=== PATIENT | male | born 1940 | race Caucasian/White ===

== ENCOUNTER 2024-04-20 10:59 | Emergency (ER) | payer OTHER, SELFPAY ==
[2024-04-20 11:08] VITALS: BP 134/94
--- NOTE | 2024-04-20 11:14 | ED.GENMED ---
History of Present Illness
<Mable Baker PA-C - Last Filed: 04/21/24 11:20>
General
Chief Complaint: Swelling
Source: patient
Exam Limitations: none
Time Seen by Provider: 04/20/24 11:12
Nursing documentation reviewed up to this point in time: agreed with
History of Present Illness
History of Present Illness:
This is a 84 y/o male with a pmh of hypertension on lisinopril, previous tobacco use, presenting emergency department today with concerns of lip swelling and mild left-sided facial swelling. Patient reports that this started upon awakening this
morning. He thought could maybe be a dental issue and so he reported to his dentist this morning who performed an exam and imaging of his teeth and advised him to report to the emergency department. Patient denies facial pain, tongue swelling,
tooth pain, lip pain, rashes, dental pain, nausea, throat pain, dysphagia, vomiting, fevers, chills, chest pain, shortness of breath. Patient denies any food allergies, any environmental allergies. Patient states that he did go to dinner last night
but denies trying anything new.
Past History
<Mable Baker PA-C - Last Filed: 04/21/24 11:20>
Past History
ED Past Medical History: HTN
Social History
Tobacco: Non-smoker
Alcohol: None
Drug: None
Personal:
Living: with family
Employment: Retired
Family History
Family History: Other (reviewed and non-contributory)
Review of Systems
<KIMNAI Cervantes Last Filed: 04/21/24 11:20>
Review of Systems
All Other Systems: ROS reviewed and negative except as documented in HPI and ROS
Phy Exam
<KIMANI Cervantes Last Filed: 04/21/24 11:20>
Physical Exam
Physical Exam:
General: Patient is well appearing and in no acute distress; non-toxic
Skin: Warm and dry, no rashes or lesions
Head: Normocephalic, atraumatic
Eyes: Sclera non-icteric. EOMs intact. PERRLA.
Mouth: No intraoral lesions. Uvula midline. Dentition intact. No tenderness to palpation of the left lower molars. No tongue swelling. Tongue midline.
Cardiac: Regular rate and rhythm, no murmurs
Peripheral Vascular: No lower extremity swelling or edema.
Pulm: Normal respiratory effort, no wheezes, rales, or rhonchi
Neuro: CN II-XII intact, no focal neurologic deficits.
Psychiatric: Appropriate mood and affect.
Scores
<Mable Baker PA-C - Last Filed: 04/21/24 11:20>
Heart Failure Risk
Heart Failure Risk Score: Not Applicable
Course
<Mable Baker PA-C - Last Filed: 04/21/24 11:20>
Orders/Labs/Results
Orders:
Orders
04/20/24 11:44
Ondansetron Injectable [Zofran] 4 mg IV NOW STA
04/20/24 11:54
Diphenhydramine [Benadryl] 25 mg PO NOW STA
04/20/24 12:11
MethylPREDNISolone [Medrol] 16 mg PO NOW STA
Vital Signs
Initial and Last Documented VS:
Initial Vital Signs
Temp Pulse Resp BP Pulse Ox
97.4 F 69 20 134/94 97
04/20/24 11:08 04/20/24 11:08 04/20/24 11:08 04/20/24 11:08 04/20/24 11:08
Last Documented Vital Signs
Temp Pulse Resp BP Pulse Ox
97.4 F 62 18 124/89 99
04/20/24 11:08 04/20/24 12:29 04/20/24 12:29 04/20/24 12:29 04/20/24 12:29
<Dionisio Gibson DO - Last Filed: 04/20/24 12:04>
Orders/Labs/Results
Orders:
Orders
04/20/24 11:44
Ondansetron Injectable [Zofran] 4 mg IV NOW STA
04/20/24 11:54
Diphenhydramine [Benadryl] 25 mg PO NOW STA
04/20/24 12:11
MethylPREDNISolone [Medrol] 16 mg PO NOW STA
Vital Signs
Initial and Last Documented VS:
Initial Vital Signs
Temp Pulse Resp BP Pulse Ox
97.4 F 69 20 134/94 97
04/20/24 11:08 04/20/24 11:08 04/20/24 11:08 04/20/24 11:08 04/20/24 11:08
Last Documented Vital Signs
Temp Pulse Resp BP Pulse Ox
97.4 F 62 18 124/89 99
04/20/24 11:08 04/20/24 12:29 04/20/24 12:29 04/20/24 12:29 04/20/24 12:29
<Mable Baker PA-C - Last Filed: 04/21/24 11:20>
MDM/Problems Addressed
Differential Diagnosis Includes:
ddx include angioedema, contact dermatitis, anaphylaxis
MDM/Problems Addressed:
Lip swelling, lisinopril use:
This is a 84 y/o male with a pmh of hypertension on lisinopril, previous tobacco use, presenting emergency department today with concerns of lip swelling and mild left-sided facial swelling. Patient reports that this started upon awakening this
morning. Patient reported to the dentist prior to arrival to the emergency department. Patient had no worsening of his symptoms for many hours since they started. No worsening of his symptoms while here in the ER. No airway involvement, no tongue
involvement, no intraoral lesions. Patient given a dose of benadryl and steroid here in the emergency department. 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 Patient advised to
stop lisinopril immediately. Patient stable for discharge.
Chronic conditions affecting care:
HTN on lisinopri
<Mable Baker PA-C - Last Filed: 04/21/24 11:20>
*Pulse Oximetry
Patient hypoxic: no
*Critical Care Note
Total Time (30-74mins, 75-104mins- exclusive of procedures): Not Applicable
Data Reviewed
Review of Other/Old Records Reveals: Records and Discharge Summary (reviewed discharge summary from 09/17/22)
Source: patient and records
Prescriptions/Medications Considered But Not Given:
considered epinephrine injection however patient has no tongue involvement, no airway involvement, no stridor/hoarseness
<Mable Baker PA-C - Last Filed: 04/21/24 11:20>
Patient Management
Escalation/DeEscalation of care consider admission/obs:
Patient stable for discharge.
ED Attending Note
<Mable Baker PA-C - Last Filed: 04/21/24 11:20>
-
Portions of this chart may have been created with voice recognition software.� Occasional wrong word or��sound alike� substitutions may have occurred due to the inherent limitations of voice recognition software.
<Dionisio Gibson DO - Last Filed: 04/20/24 12:04>
ED Attending Note
Patient seen and examined by attending physician: Yes
I performed the substantive portion of visit, reviewed & personally made and approve the management plan that is documented in note by myself or CHRISTINA.: Yes
ED Attending Note:
Seen with PA agree with assessment and plan atraumatic left upper lip mild left facial swelling, no intraoral tenderness no tongue involvement no stridor patient was actually seen at the dentist, told that he had no intraoral infections, referred to
the ER, he is on an MARGARITO inhibitor, suspect this is the margarito inhibitor angioedema, will stop that medication should Benadryl and steroids monitor for any recurrence,
Discharge Plan
Departure
Patient Disposition: Home (Routine Discharge)
Date of Disposition: 04/20/24
Time of Disposition: 11:58
Patient with high blood pressure during this ER visit?: Yes
Condition: Good
Discharge Problem:
Angioedema
Instructions: Angioedema caused by MARGARITO inhibitor medicines, BLOOD PRESSURE
Prescriptions:
New
methylprednisolone [Medrol (Lanre)] 4 mg tablets,dose pack
See Rx Instructions .ROUTE .COMPLEX Qty: 21 0RF
Rx Instructions:
orally per package directions
No Action
atorvastatin 10 mg Tablet
10 mg PO DAILY
prednisolone acetate 1 % drops,suspension
1 drp RIGHT EYE .Q48H@HS
cinnamon bark [Cinnamon] 500 mg Capsule
2,000 mg PO DAILY
cholecalciferol (vitamin D3) 50 mcg (2,000 unit) Tablet
50 mcg PO DAILY
Osteo Bi-Flex Triple Strength 750 mg-644 mg- 30 mg-1 mg Tablet
1 tab PO DAILY
cefuroxime axetil 500 mg tablet
500 mg PO BID Qty: 10 0RF
doxycycline hyclate 100 mg tablet
100 mg PO BID Qty: 10 0RF
oseltamivir 75 mg Capsule
75 mg PO BID Qty: 3 0RF
lisinopril 20 mg tablet
20 mg PO DAILY Qty: 30 0RF
Referrals:
Clyde Modi I., DO [Family Provider] -
Activity Restrictions/Additional Instructions:
The swelling you have is called ANGIOEDEMA which is caused by the class of medications called MARGARITO inhibitors. You take a medication in this class called LISINOPRIL.
PLEASE STOP TAKING LISINOPRIL IMMEDIATELY.
Please return to the emergency department or call 911 immediately should you experience shortness of breath, chest pain, a recurrence of your symptoms, tongue swelling, hoarseness of voice, trouble breathing, or any other concerning signs or
symptoms.
Please call your family doctor for follow up and let them know you were seen in the emergency department for angioedema.
We have sent Medrol dose pack to your pharmacy. Please follow package instructions for dosing. Please start taking this tomorrow.
You can garbage pick up man Benadryl over the counter. You were given a dose of this in the emergency department. The next time you can take this is at 4 PM today. You can take one 25 mg Benadryl table every 4-6 hours as needed.
Interventions
Interventions:
*Risk Screen - Suicide Last Done: 04/20/24 11:08
*General Assessment Last Done: 04/20/24 11:08
*Neglect/Abuse Screening Last Done: 04/20/24 11:08
ED- Fall Risk Assessment Last Done: 04/20/24 12:31
*ED COVID-19 Vaccine History Last Done: 04/20/24 12:31
*Nursing Disposition Last Done: 04/20/24 12:31
ED- Cardiac Assessment Last Done: 04/20/24 11:22
ED- Pulmonary Assessment Last Done: 04/20/24 11:22
ED-Skin Assessment Last Done: 04/20/24 11:22
Discharge Date and Time
Discharge Date/Time: 04/20/24 12:32
Print Language: GEORGIAN
[2024-04-20] MEDS: MEDROL 16 MG PO (12:27)
[2024-04-20] MEDS: BENADRYL 25 MG PO (12:27)
[2024-04-20 12:29] VITALS: BP 124/89
== END 2024-04-20 12:32 | disposition home or self-care (01) ==
LOC: EMR 10:59
PROVIDERS: EMERGENCY PHYSICIAN Emergency Medicine; FAMILY PHYSICIAN Internal Medicine
DX: T78.3XXA Angioneurotic edema, initial encounter (principal); Y99.9 Unspecified external cause status; I10 Essential (primary) hypertension
CPT/HCPCS: 99282

== ENCOUNTER → 2024-04-21 13:02 | Outpatient (REF) | payer OTHER, SELFPAY | LOC: HWRAD 13:02 | PROVIDERS: ATTENDING PHYSICIAN Internal Medicine; REFERRING PHYSICIAN Specialist | DX: M25.561 Pain in right knee (principal) | CPT/HCPCS: 73560 ==

== ENCOUNTER 2025-01-23 22:15 | Observation (INO) | payer OTHER, SELFPAY ==
[2025-01-23 16:16] VITALS: BP 165/91
[2025-01-23 16:46] VITALS: BMI 26.6
--- NOTE | 2025-01-23 17:06 | ED.GENMED ---
History of Present Illness
General
Chief Complaint: Back Pain
Time Seen by Provider: 01/23/25 17:05
History of Present Illness
History of Present Illness:
TIME OF INITIAL ENCOUNTER: 5:06 PM
HPI: Patient presents with ongoing and worsening low back pain over the last 3 to 4 days. The pain now radiates down the right lower extremity. His family member is a nurse practitioner who is going to try cyclobenzaprine. The patient reports no
abdominal pain. Family was also concerned because they noted weight loss and he appeared pale. He came in by ambulance because he could not walk earlier today.
EXAM:
GENERAL: The patient appears somewhat uncomfortable slightly pale
HEENT: Moist oral mucosa
CARDIOVASCULAR: Normal heart rate, regular rhythm, No chest wall tenderness
PULMONARY: No respiratory distress, breath sounds are clear and equal
ABDOMEN: Soft with no peritoneal signs, no tenderness, no masses
NEUROLOGIC: Excellent distal strength all extremities, no coordination deficits, excellent strength in an L5 and S1 distribution however cannot elicit good L4 reflexes
BACK: Decreased active range of motion of the thoracolumbar spine, positive straight leg raise on the right at 20 degrees
PSYCHIATRIC: Appropriate mental status, normal insight and judgement
EXTREMITIES: Nontender, no edema
SKIN: Slightly pale
NUMBER AND COMPLEXITY OF PROBLEMS ADDRESSED AT THE ENCOUNTER
� Chronic conditions affecting care: High blood pressure, smoker
� Acute Exacerbation and/or Progression of Chronic Illness: This is an acute problem
� Differential Diagnosis includes: Sciatica, malignancy given the reported weight loss, anemia, multiple myeloma
AMOUNT AND/OR COMPLEXITY OF DATA TO BE REVIEWED AND ANALYZED
� I performed an independent evaluation of and my interpretation is:
EKG:
CT: CAT scan of the brain shows no acute abnormality, CT scan of the abdomen pelvis reviewed and agree with radiologist interpretation
X-rays:
Laboratory Studies: White count 8.6, hemoglobin 12.3, platelets normal, chemistries unremarkable
Other:
� Review of other/old records: I reviewed records, the patient was admitted here with acute hyponatremia in September 24 associated with an acute influenza B infection 22 and likely left upper lobe pneumonia superinfection
� Clinical information was obtained by an independent historian: Spoke to family at bedside
� Prescriptions/Medications Considered but not given:
� Further testing considered but not performed: I offered and considered narcotic analgesia however the patient states that the pain is not bad when he is not moving.
RISK OF COMPLICATIONS AND/OR MORBIDITY OR MORTALITY OF PATIENT MANAGEMENT
� Social determinants of health affecting care: Lives at home
� Discussion with other providers: Hospitalist, Dr. Rubio for admission
� Escalation of care including admission/observation vs risk of discharge considered: Suspect sciatica however the family is also concerned of other issues including overall ill appearance, pale, weight loss, and family member
also question slurred speech.
ANY OTHER UPDATES:
8:15 PM: I reassessed patient. At rest he feels okay but as soon as he tries to make any movement he has rather debilitating pain. Daughter, an PACKAGE DESIGNER, at bedside feels that the patient cannot go home safely as he lives with his .
Past History
Past History
ED Past Medical History: HTN
Social History
Tobacco: Non-smoker
Alcohol: None
Drug: None
Personal:
Living: with family
Employment: Retired
Family History
Family History: Other (reviewed and non-contributory)
Phy Exam
Physical Exam
Physical Exam:
See HPI
Course
Orders/Labs/Results
Orders:
Orders
01/23/25 17:25
CT Abd/pel Without Iv Or Oral Urgent
Comment:
Reason For Exam: R flank pain severe
Dexamethasone Sod Phosphate [Decadron] 10 mg IV NOW STA
Ketorolac [Toradol] 15 mg IV NOW STA
01/23/25 17:26
0.9% Sodium Chloride 1000 ml [Nss] 1,000 ml IV BOLUS
01/23/25 17:30
CT Head W/o Iv Contrast Urgent
Comment:
Reason For Exam: ? slurred speech
01/23/25 17:32
Complete Blood Count/No Diff Urgent
Comprehensive Metabolic Panel Urgent
01/23/25 20:00
Urinalysis Reflex To Culture Routine
01/23/25 22:00
Flush (0.9% Sodium Chloride) [Flush (Nss)] See Dose Instructions IV PER PROTOCOL
Abnormal Lab Results
01/23/25
17:32
RBC 3.87 L 10^6/uL
(4.70-6.10)
Hgb 12.3 L g/dL
(13.0-18.0)
Hct 36.1 L %
(39.0-52.0)
MCH 31.8 H pg
(27.0-31.0)
MPV 10.5 H fL
(7.4-10.4)
BUN 21 H mg/dl
(9-20)
Glucose 126 H mg/dl
(70-99)
01/23/25 17:32
01/23/25 17:32
Vital Signs
Initial and Last Documented VS:
Initial Vital Signs
Temp Pulse Resp BP Pulse Ox
36.9 C 77 16 165/91 98
01/23/25 16:16 01/23/25 16:16 01/23/25 16:16 01/23/25 16:16 01/23/25 16:16
Last Documented Vital Signs
Temp Pulse Resp BP Pulse Ox
36.9 C 77 16 142/75 96
01/23/25 16:16 01/23/25 16:16 01/23/25 16:16 01/23/25 18:00 01/23/25 18:00
*Critical Care Note
Total Time (30-74mins, 75-104mins- exclusive of procedures): Not Applicable
ED Attending Note
-
Portions of this chart may have been created with voice recognition software.� Occasional wrong word or��sound alike� substitutions may have occurred due to the inherent limitations of voice recognition software.
Discharge Plan
Departure
Patient Disposition: Admit
Date of Disposition: 01/23/25
Time of Disposition: 20:48
Presentation/result/management discussed w/ accepting MD/DO: Hospitalist
Discharge Problem:
Ambulatory dysfunction
Prescriptions:
No Action
atorvastatin 10 mg Tablet
10 mg PO DAILY
prednisolone acetate 1 % drops,suspension
1 drp RIGHT EYE .Q48H@HS
cinnamon bark [Cinnamon] 500 mg Capsule
2,000 mg PO DAILY
cholecalciferol (vitamin D3) 50 mcg (2,000 unit) Tablet
50 mcg PO DAILY
Osteo Bi-Flex Triple Strength 750 mg-644 mg- 30 mg-1 mg Tablet
1 tab PO DAILY
cefuroxime axetil 500 mg tablet
500 mg PO BID Qty: 10 0RF
doxycycline hyclate 100 mg tablet
100 mg PO BID Qty: 10 0RF
oseltamivir 75 mg Capsule
75 mg PO BID Qty: 3 0RF
lisinopril 20 mg tablet
20 mg PO DAILY Qty: 30 0RF
methylprednisolone [Medrol (Lanre)] 4 mg tablets,dose pack
See Rx Instructions .ROUTE .COMPLEX Qty: 21 0RF
Rx Instructions:
orally per package directions
Referrals:
[facility], [Other]
Clyde Modi I., DO [Family Provider] -
Interventions
Interventions:
*Risk Screen - Suicide Last Done: 01/23/25 16:16
*General Assessment Last Done: 01/23/25 16:16
*Neglect/Abuse Screening Last Done: 01/23/25 16:16
*ED- Fall Risk Assessment Last Done: 01/23/25 16:46
*ED COVID-19 Vaccine History Last Done: 01/23/25 16:16
ED-Musculoskeletal Assessment Last Done: 01/23/25 16:46
Discharge Date and Time
Print Language: IRAQI
[2025-01-23 17:41] LABS: Hematocrit 36.1 % (39.0-52.0); Hemoglobin 12.3 g/dL (13.0-18.0); Mean Corp Hgb Conc. 34.1 g/dL (33.0-37.0); Mean Corpuscular Hgb 31.8 pg (27.0-31.0); Mean Corpuscular Volume 93.3 fL (80.0-94.0); Mean Platelet Volume 10.5 fL (7.4-10.4); Platelet Count 284 10^3/uL (130-400); Red Blood Cell Count 3.87 10^6/uL (4.70-6.10); Red Cell Dist. Width 12.6 % (11.5-14.5); White Blood Cell Count 8.6 10^3/uL (4.8-10.8)
[2025-01-23] MEDS: NSS 1000 IV (17:45)
[2025-01-23] MEDS: DECADRON 10 MG IV (17:46)
[2025-01-23] MEDS: TORADOL 15 MG IV (17:46)
[2025-01-23 17:52] VITALS: BP 148/75
[2025-01-23 17:54] LABS: ALT (SGPT) < 10 U/L (0-50); AST (SGOT) 18 U/L (17-59); Albumin 3.8 g/dl (3.5-5.0); Alkaline Phosphatase 95 U/L (38-126); Blood Urea Nitrogen 21 mg/dl (9-20); Calcium 9.1 mg/dl (8.4-10.2); Carbon Dioxide 28 mmol/L (22-30); Chloride 99 mmol/L (98-107); Estimated Creatinine Clearance 59 ml/min; Glucose 126 mg/dl (70-99); Potassium 4.2 mmol/L (3.5-5.1); Sodium 135 mmol/L (135-145); Total Bilirubin 0.6 mg/dl (0.2-1.3); Total Protein 6.5 g/dl (6.3-8.2); eGFR > 60.00
[2025-01-23 18:00] VITALS: BP 142/75
[2025-01-23 20:13] LABS: Urine Albumin Negative (Neg - Trace); Urine Bilirubin Negative (Negative); Urine Character Clear (Clear); Urine Color Yellow; Urine Glucose Negative (Negative); Urine Ketone Negative (Negative); Urine Leukocyte Negative (Negative); Urine Nitrite Negative (Negative); Urine Occult Blood Negative (Negative); Urine Specific Gravity 1.015 (<1.030); Urine Urobilinogen Negative (Neg - 1+)
--- NOTE | 2025-01-23 21:56 | HPS.HSE ---
Family Physician
-
Family Physician: Clyde Modi
Chief Complaint
-
Back Pain
History of Present Illness
Patient is an 84y M with PMH significant for hypertension and diet-controlled DM-II who presents to ED complaining of back pain. History obtained from patient and his family at the bedside. Patient states that he started with lower back
discomfort about 2 days ago. He woke with the pain at that time. He noted pain radiating into the R buttock and posterior thigh. He has had significant difficulty standing / ambulating due to pain. He notes that the pain is better when lying
supine.
Patient denies any inciting injury, trauma, fall, etc.
he has tried OTC meds, heat and muscle relaxants without improvement in his symptoms.
Today he went to a family gathering and it was noted that he could not stand / walk and he was brought to the ED for further evaluation and treatment.
Medical History
Past Medical History
Past Medical History: Reports Other
Additional Past Medical History:
Hypertension
Diet-Controlled DM-II
Temporal Arteritis
Past Surgical History: Reports Other
Social History
Tobacco: Smoker (Current some day smoker.)
Alcohol: Occasional
Drug: None
Personal:
Living: With Family
Family History
Family History: Not pertinent
Allergies / Home Medications
Allergies reflects when Allergies were last updated in [facility].
Home Medications with original date entered in [facility]
Allergy/Medication List:
Allergies
Allergy/AdvReac Type Severity Reaction Status Date / Time
No Known Allergies Allergy Verified 01/23/25 16:19
Home Medications
atorvastatin 10 mg tablet 10 mg PO DAILY High cholesterol 09/13/22
cholecalciferol (vitamin D3) 50 mcg (2,000 unit) tablet 50 mcg PO DAILY Supplement 09/13/22
cinnamon bark 500 mg capsule (Cinnamon) 2,000 mg PO DAILY Supplement 09/13/22
glucosamine 750 [id number] no1 644 mg-C 30 mg-rogelio 1 mg tablet (Osteo Bi-Flex Triple Strength) 1 tab PO DAILY Supplement 09/13/22
ascorbic acid (vitamin C) 1,000 mg tablet (Vitamin C) 1 g PO DAILY 01/23/25
hydrochlorothiazide 25 mg tablet 25 mg PO DAILY 01/23/25
Review of Systems
-
History Source: Patient
A 12 point ROS was completed and negative except as noted: Yes
Constitutional: Denies Fever or Chills
Respiratory: Denies Cough or Trouble Breathing
Cardiac: Denies Chest Pain or Palpitations
Abdomen/GI: Denies Abdominal Pain, Nausea, Vomiting or Diarrhea
: Denies Dysuria, Frequency or Flank Pain
Musculoskeletal: Reports Other (Back pain); Denies Joint Pain or Edema
Neurological: Denies Dizzy, Headache, Weakness or Numbness
Physical Exam
Vital Signs
Vital Signs
Temp Pulse Resp BP Pulse Ox
98.4 F 77 16 142/75 96
01/23/25 16:16 01/23/25 16:16 01/23/25 16:16 01/23/25 18:00 01/23/25 18:00
Physical Exam
General: Other (84y M in no acute distress while lying supine.)
HEENT: Moist mucous membranes and PERRLA
Respiratory: Clear; No Wheezes, Rales or Rhonchi
Cardiac: S1/S2 and Regular Rhythm; No Murmur
GI: Soft, Non Tender, Non Distended and Normal Bowel Sounds
Musculoskeletal: No Clubbing, No Cyanosis, No Edema and Other (No posterior spinal tenderness / spasm. Tenderness over R buttock / piriformis area. Pos SLR on the R at about 20 degrees.)
Neuro: AO x 3 and Nonfocal/grossly intact
Laboratory Results
-
01/23/25 17:32
01/23/25 17:32
Laboratory Results
Total Bilirubin 0.6 mg/dl (0.2-1.3) 01/23/25 17:32
AST 18 U/L (17-59) 01/23/25 17:32
ALT < 10 U/L (0-50) 01/23/25 17:32
Alkaline Phosphatase 95 U/L (38-126) 01/23/25 17:32
Impression/Plan
-
A/P: Patient is an 84y M with PMH significant for hypertension who presents to ED complaining of back pain x 2 days.
Low Back Pain
RLE Radiculopathy
DDD
- Observe overnight for further evaluation and treatment.
- Supportive care with pain control, muscle relaxants and application of heat.
- PT evaluation in the AM.
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
- Check MRI in AM and consider IR eval for LESI if pain remains poorly controlled.
Benign Hypertension
- Stable. Continue HCTZ.
Renal Mass
- CT done in the ED also incidentally shows L renal mass (2.3cm).
- Patient / family informed.
- Consider follow-up imaging as outpatient if further work-up is desired.
DVT Prophylaxis: SCDs
Code Status: DNR
[2025-01-23 23:10] VITALS: BP 166/84; BMI 25.4
[2025-01-23] MEDS: TYLENOL 1000 MG PO (23:47)
[2025-01-23] MEDS: SENOKOT 17.2 MG PO (23:47)
[2025-01-24 07:00] VITALS: BP 168/90
[2025-01-24 07:20] LABS: Glucose - Point of Care 131 mg/dl (70-99)
--- NOTE | 2025-01-24 08:36 | W.PN.HOSP.TC ---
Today's Communication/Plan
-
Discharge planning
Assessment / Plan
Assessment / Plan
Physical exam:
General: Well Developed, Well Nourished and No Apparent Distress
HEENT: Normocephalic, Atraumatic and Moist Mucous Membranes
Respiratory: Clear to Auscultation; Negative Wheezes, Rales or Rhonchi
Cardiac: Regular Rhythm and S1/S2
GI: Soft, Nontender and Nondistended
Musculoskeletal: Mild tenderness in back area with decreased range of motion. Right knee no swelling or tenderness. No Clubbing, No Cyanosis and No Edema
Neuro: Awake, Alert and Oriented, no gross neurological deficits
Psych: Calm
A/P:
Low Back Pain
RLE Radiculopathy
DDD
- Observe overnight for further evaluation and treatment.
- Supportive care with pain control, muscle relaxants and application of heat.
- PT evaluation in the AM.
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
- Checked MRI in AM and consider IR eval for LESI if pain remains poorly controlled--> MRI shows spinal stenosis and disc herniation but currently well-controlled with pain management. Continue current pain medications and consider spine
specialist evaluation as outpatient if worsens down the road. Discussed with daughter over the phone. We will initiate also a tapering course of steroids. He will continue with outpatient physical therapy. He is eager to go home today.
Benign Hypertension
- Stable. Continue HCTZ.
Renal Mass
- CT done in the ED also incidentally shows L renal mass (2.3cm).
- Patient / family informed.
- Recommended follow-up MRI of kidney area for further evaluation and patient interested in pursuing that as outpatient
DVT Prophylaxis: SCDs
Code Status: DNR
Anticipated Discharge: Today
Subjective/Interval History
-
Date of Service: January 24, 2025
Feels much better on his back pain
Objective Data
-
Labs:
Laboratory Results
01/24/25
06:00
WBC Pending
Hgb Pending
Hct Pending
Plt Count Pending
Sodium Pending
Potassium Pending
Chloride Pending
Carbon Dioxide Pending
BUN Pending
Creatinine Pending
Glucose Pending
Calcium Pending
Vital Signs:
Vital Signs
Temp Pulse Resp BP Pulse Ox
97.4 F 70 16 168/90 98
01/24/25 07:00 01/24/25 07:00 01/24/25 07:00 01/24/25 07:00 01/24/25 07:00
I&O
01/23/25 01/24/25 01/25/25
06:59 06:59 06:59
Intake Total 240 / 240
Output Total 425 / 425
Balance -185 / -185
[2025-01-24 08:58] VITALS: BP 175/91
[2025-01-24 09:13] LABS: Hematocrit 40.4 % (39.0-52.0); Hemoglobin 13.9 g/dL (13.0-18.0); Mean Corp Hgb Conc. 34.4 g/dL (33.0-37.0); Mean Corpuscular Hgb 31.4 pg (27.0-31.0); Mean Corpuscular Volume 91.2 fL (80.0-94.0); Mean Platelet Volume 10.5 fL (7.4-10.4); Platelet Count 328 10^3/uL (130-400); Red Blood Cell Count 4.43 10^6/uL (4.70-6.10); Red Cell Dist. Width 12.1 % (11.5-14.5); White Blood Cell Count 9.3 10^3/uL (4.8-10.8)
[2025-01-24] MEDS: LIPITOR 10 MG PO (09:14)
[2025-01-24] MEDS: ORETIC 25 MG PO (09:14)
[2025-01-24] MEDS: TYLENOL 1000 MG PO ×2 (09:15→15:58)
[2025-01-24] MEDS: COLACE 100 MG PO (09:15)
[2025-01-24 10:03] LABS: Blood Urea Nitrogen 21 mg/dl (9-20); Calcium 9.7 mg/dl (8.4-10.2); Carbon Dioxide 24 mmol/L (22-30); Chloride 101 mmol/L (98-107); Estimated Creatinine Clearance 67 ml/min; Glucose 136 mg/dl (70-99); Potassium 5.3 mmol/L (3.5-5.1); Sodium 139 mmol/L (135-145); eGFR > 60.00
[2025-01-24 11:10] LABS: Glucose - Point of Care 153 mg/dl (70-99)
--- NOTE | 2025-01-24 11:12 | CM ---
Addendum entered by Karina Brar 01/24/25 16:22:
Patient stable for d/c today.
OP therapy script provided by hospitalist
Spouse will transport home
IMM verbally reviewed, patient given copy, copy placed on chart
Original Note:
Patient seen bedside, initial assessment completed. Patient is an 84y M with PMH significant for hypertension and diet-controlled DM-II who presents to ED complaining of back pain.
Patient reports that he resides w/ spouse in a 2STH- 3 steps to enter. Independent w/ ambulating, no device required. Independent w/ ADLs. No DME identified. No SNF/HC hx reported. OP therapy in the past.
Address, points of contact and insurance verified
PCP: Clyde Modi
[facility]
Patient admitted as OBS. BO form reviewed, patient given copy, copy placed on chart
Therapy assessed patient and recommending home PT. Patient shared he prefers OP therapy as he was satisfied where he went before. PT, Stephan, shared patient is able to do OP therapy if he doesn't want to do home PT.
Plan: Home w/ OP therapy
[2025-01-24] MEDS: NOVOLOG FLEXPEN-MODERATE RESISTANCE 1 UNITS SC (13:00)
[2025-01-24 15:00] VITALS: BP 131/78
[2025-01-24 15:17] LABS: Blood Urea Nitrogen 25 mg/dl (9-20); Calcium 9.9 mg/dl (8.4-10.2); Carbon Dioxide 26 mmol/L (22-30); Chloride 100 mmol/L (98-107); Estimated Creatinine Clearance 61 ml/min; Glucose 91 mg/dl (70-99); Potassium 4.1 mmol/L (3.5-5.1); Sodium 139 mmol/L (135-145); eGFR > 60.00
[2025-01-24] MEDS: MEDROL 24 MG PO (15:58)
[2025-01-24 16:37] LABS: Glucose - Point of Care 165 mg/dl (70-99)
== END 2025-01-24 16:47 | disposition home health service (06) ==
LOC: 4 WEST ACU 22:15
PROVIDERS: ADMITTING PHYSICIAN Hospitalist; ATTENDING PHYSICIAN Hospitalist; EMERGENCY PHYSICIAN Emergency Medicine; FAMILY PHYSICIAN Internal Medicine
DX: M51.06 Intervertebral disc disorders with myelopathy, lumbar region (principal); M51.16 Intervertebral disc disorders with radiculopathy, lumbar region; M48.061 Spinal stenosis, lumbar region without neurogenic claudication; M51.372 Other intervertebral disc degeneration, lumbosacral region with discogenic back pain and lower extremity pain; M54.50 Low back pain, unspecified; M79.604 Pain in right leg; F17.200 Nicotine dependence, unspecified, uncomplicated; I10 Essential (primary) hypertension; R47.81 Slurred speech; R63.4 Abnormal weight loss; K59.00 Constipation, unspecified; K40.90 Unilateral inguinal hernia, without obstruction or gangrene, not specified as recurrent; K82.8 Other specified diseases of gallbladder; R26.2 Difficulty in walking, not elsewhere classified; E11.9 Type 2 diabetes mellitus without complications; J98.11 Atelectasis; N28.89 Other specified disorders of kidney and ureter; Z68.25 Body mass index [BMI] 25.0-25.9, adult; Z66 Do not resuscitate; Z79.899 Other long term (current) drug therapy
CPT/HCPCS: 70450; 72148; 74176; 80048; 80053; 81003; 82962; 85027; 96361; 96374; 96375; 97161; 99285; 99406; G0378